=== PATIENT | female | born 1975 | race Caucasian/White ===

== ENCOUNTER 2016-04-26 10:31 | Emergency (ER) | payer MEDICAID ==
[~2016-04-26] VITALS: Ht 165.1 cm; Wt 100.0 kg
[2016-04-26 10:34] VITALS: Ht 165.1 cm; Wt 100.0 kg
[2016-04-26] MEDS ORDERED: IBUPROFEN 600 MG TAB PO ONE (11:00)
[2016-04-26] MEDS ORDERED: HYDROCODONE/APAP (5/325) TAB PO ONE (11:00)
--- NOTE | 2016-04-26 11:33 | RADRPT ---
PROCEDURE: XR Ankle. CLINICAL INDICATION: Ankle injury TECHNIQUE: Three views of the left ankle were performed. COMPARISON: None. FINDINGS: There is no acute osseous or articular abnormality. No evidence for fracture. Bone mineral density is preserved. The articular surfaces are smooth without evidence of marginal erosions. The ankle mo rtise is preserved. Enthesopathic changes are noted at the Achilles insertion. Mild lateral soft ti ssue swelling is noted. IMPRESSION: 1. No acute osseous abnormality. 2. Mild soft tissue swelling. RPTAT: TT .Jack Byrne MD, MD Date Time Electronically viewed and signed by .Jack Byrne MD, MD on 04/26/2016 11:33 .d/
--- NOTE | 2016-04-26 11:34 | RADRPT ---
PROCEDURE: XR Knee. CLINICAL INDICATION: Knee pain. Trauma TECHNIQUE: Three views of the left knee are available for review. COMPARISON: None available FINDINGS: The medial and lateral femorotibial compartments are preserved, as is the patellofemoral compartment . There is no acute osseous abnormality, marginal erosion or evidence of fracture. A joint effusion is not seen. IMPRESSION: 1. No acute osseous abnormality. 2. Preserved joint spaces. RPTAT: TT .Jack Byrne MD, MD Date Time Electronically viewed and signed by .Jack Byrne MD, MD on 04/26/2016 11:34 .d/
[2016-04-26] MEDS ORDERED: TRAM50TA2 PO (11:37)
--- NOTE | 2016-04-26 11:44 | ERD ---
ER Documentation Chief Complaint Date/Time DATE: 04/26/16 TIME: 11:42 Chief Complaint fall c/o left ankle and knee pain HPI 40-year-old female was brought in by rescue complaining of left ankle left knee pain from a slip and fall this morning at a plasma donation center. She complains of left-sided posterior knee pain, she states that she had landed directly onto her left knee, and remembers twisting the left ankle. Her pain is at the lateral aspect of the left ankle, worse with weightbearing, she has no difficulty moving her ankle or feet. ROS All systems reviewed and are negative except as per history of present illness. Medications Home Meds Active Scripts Tramadol HCl (Tramadol HCl) 50 Mg Tablet, 50 MG PO Q4 Y for PAIN, #15 TAB Prov:ASHLEY GOINS PA-C 04/26/16 Allergies Allergies: Coded Allergies: No Known Allergy (Unverified , 04/26/16) PMhx/Soc History of Surgery: Yes (Bilat eyes) Anesthesia Reaction: No Hx Neurological Disorder: No Hx Respiratory Disorders: No Hx Cardiac Disorders: No Hx Psychiatric Problems: Yes (bipolar) Hx Miscellaneous Medical Probl: Yes (hip dysplaysa) Hx Alcohol Use: Yes (social) Hx Substance Use: Yes (marijuana) Hx Tobacco Use: No Smoking Status: Never smoker Physical Exam Vitals Vital Signs Date Time Temp Pulse Resp B/P Pulse Ox O2 Delivery O2 Flow Rate FiO2 04/26/16 10:34 98.5 88 20 130/81 100 Physical Exam General: Well-developed, well-nourished. The patient appears in no acute distress. HEENT: Head is normocephalic, atraumatic. No scleral icterus. Neck: Supple. Nontender. Lungs: Clear to auscultation. Normal air movement. Heart: Regular rate and rhythm. S1 and S2 are normal. No murmurs, gallops, or rubs. Abdomen: Nondistended. Extremities: Soft tissue tenderness of the left anterior knee, no joint no joint line tenderness, she has full range of motion with left knee flexion and extension, compartments are soft. No overlying laceration. No joint laxity. Left lateral ankle has tenderness and soft tissue swelling over the lateral malleolus, no bony deformities, there is no medial aspect tenderness, no pain over the dorsum of the foot. Sensation is distally intact. Neurologic: Alert and oriented 3. No focal deficits. Normal speech and gait. Skin: Normal turgor. No rash or lesions. Results 24 hrs Current Medications Medications (Trade) Dose Ordered Sig/Joan Route PRN Reason Start Time Stop Time Status Last Admin Dose Admin Acetaminophen/ Hydrocodone Bitart (Shasta (5/325)) 1 tab ONCE ONCE PO 04/26/16 11:00 04/26/16 11:01 DC 04/26/16 10:47 Ibuprofen (Motrin) 600 mg ONCE ONCE PO 04/26/16 11:00 04/26/16 11:01 DC 04/26/16 10:48 PROCEDURE: XR Ankle. CLINICAL INDICATION: Ankle injury TECHNIQUE: Three views of the left ankle were performed. COMPARISON: None. FINDINGS: There is no acute osseous or articular abnormality. No evidence for fracture. Bone mineral density is preserved. The articular surfaces are smooth without evidence of marginal erosions. The ankle mortise is preserved. Enthesopathic changes are noted at the Achilles insertion. Mild lateral soft tissue swelling is noted. IMPRESSION: 1. No acute osseous abnormality. 2. Mild soft tissue swelling. RPTAT: TT .Jack Byrne MD, MD Date Time Electronically viewed and signed by .Jack Byrne MD, MD on 04/26/2016 11:33 .d/ CC: ASHLEY GOINS PA-C PROCEDURE: XR Knee. CLINICAL INDICATION: Knee pain. Trauma TECHNIQUE: Three views of the left knee are available for review. COMPARISON: None available FINDINGS: The medial and lateral femorotibial compartments are preserved, as is the patellofemoral compartment. There is no acute osseous abnormality, marginal erosion or evidence of fracture. A joint effusion is not seen. IMPRESSION: 1. No acute osseous abnormality. 2. Preserved joint spaces. RPTAT: TT .Jack Byrne MD, Date Time Electronically viewed and signed by .Jack Byrne MD, MD on 04/26/2016 11:34 Procedures/MDM ED course: Patient was given ibuprofen, Shasta for pain. Patient's left ankle is wrapped in Triston bandage, she was given crutches to be weightbearing as tolerated. MDM: 40-year-old female presents with a slip and fall with a left knee sprain, left ankle sprain, there is no underlying fracture, subluxation, dislocation. She is normal neurologically neurovascularly intact and is appropriate to be discharged home. Departure Diagnosis: Primary Impression: Left ankle sprain Additional Impression: Left knee sprain Condition: Good Patient Instructions: Treating Ankle Sprains, Knee Sprain Additional Instructions: Call your primary care doctor TOMORROW for an appointment during the next 1-2 days.See the doctor sooner or return here if your condition worsens before your appointment time. ASHLEY GOINS PA-C Apr 26, 2016 11:44
== END 2016-04-26 12:02 | disposition home or self-care (01) ==
LOC: FTE 10:31
DX: S93.402A Sprain of unspecified ligament of left ankle, initial encounter (principal); S83.92XA Sprain of unspecified site of left knee, initial encounter; W01.0XXA Fall on same level from slipping, tripping and stumbling without subsequent striking against object, initial encounter; Y92.9 Unspecified place or not applicable
CPT/HCPCS: 73562; 73610; Z7502; Z7610